=== PATIENT | male | born 1945 | race Caucasian/White ===

== ENCOUNTER 2019-06-22 08:44 | Day surgery (SDC) | payer MEDICARE ==
[~2019-06-22] VITALS: Ht 170.2 cm; Wt 87.7 kg
[2019-06-22 09:00] VITALS: BP 164/111
[2019-06-22] MEDS ORDERED: ALLO100T PO (09:13)
[2019-06-22] MEDS ORDERED: ESCI10TA PO (09:14)
[2019-06-22] MEDS ORDERED: MULT1TAB74 PO (09:14)
[2019-06-22] MEDS ORDERED: FISH OIL PO (09:15)
[2019-06-22] MEDS ORDERED: VITAMIN D3 PO (09:16)
[2019-06-22] MEDS ORDERED: MIDAZolam 5mg/5ml vial ONE (09:45)
[2019-06-22] MEDS ORDERED: fentaNYL/PF 50MCG/1 ML 2ML syringe ONE (09:45)
[2019-06-22 10:29] VITALS: BP 135/92
[2019-06-22 10:39] VITALS: BP 137/81
[2019-06-22 10:49] VITALS: BP 140/83
[2019-06-22 10:59] VITALS: BP 147/84
== END 2019-06-22 11:15 | disposition home or self-care (01) ==
LOC: GI LAB 08:44
PROVIDERS: ATTEND Internal Medicine Gastroenterology
DX: Z12.11 Encounter for screening for malignant neoplasm of colon (principal); D12.2 Benign neoplasm of ascending colon; D12.4 Benign neoplasm of descending colon; D12.5 Benign neoplasm of sigmoid colon; K51.40 Inflammatory polyps of colon without complications; K57.30 Diverticulosis of large intestine without perforation or abscess without bleeding; K64.8 Other hemorrhoids; Z86.010 Personal history of colon polyps
CPT/HCPCS: 45380; 45381; 45385; 99153; C1773; G0500; J2250; J3010; J7040; 45335; 99152; A4620

== ENCOUNTER 2019-11-12 10:51 | Emergency (ER) | payer MEDICARE ==
[~2019-11-12] VITALS: Ht 170.2 cm; Wt 92.0 kg
[~2019-11-12 10:51] MED LIST: ALLO100T PO; ESCI10TA PO; FISH OIL PO; MULT1TAB74 PO; VITAMIN D3 PO
[2019-11-12] MEDS ORDERED: HYDROcodone/acetaminophen 10/325mg tab PO ONE (11:30)
[2019-11-12] MEDS ORDERED: normal saline 1000ml 1,000 ML IV ONE (11:48)
[2019-11-12] MEDS ORDERED: morphine 2 MG/ML inj. syringe IV PRN (11:50)
[2019-11-12] MEDS ORDERED: normal saline 1000ML IV soln IVB ONE (11:50)
[2019-11-12 12:07] VITALS: BP 144/90
[2019-11-12] MEDS ORDERED: iohexol 300mg/ml 100ml inj. ONE (12:07)
[2019-11-12 12:29] LABS: BASOPHILS # (AUTO) 0.1 X10'3 (0-0.2); BASOPHILS % (AUTO) 0.9 % (0-1); EOSINOPHILS # (AUTO) 0.1 X10'3 (0-0.9); EOSINOPHILS % (AUTO) 1.7 % (0-6); HEMATOCRIT 42.2 % (42.0-52.0); HEMOGLOBIN 14.3 g/dl (14.0-17.9); LYMPHOCYTES # (AUTO) 1.2 X10'3 (1.1-4.8); LYMPHOCYTES % (AUTO) 17.9 % (21-51); MEAN CORPUSCULAR HEMOGLOBIN 32.8 PG (27.0-31.0); MEAN CORPUSCULAR HGB CONC 33.8 g/dL (33.0-36.5); MEAN CORPUSCULAR VOLUME 97.1 FL (78-98); MEAN PLATELET VOLUME 8.5 FL (7.4-10.4); MONOCYTES # (AUTO) 0.5 X10'3 (0-0.9); MONOCYTES % (AUTO) 7.4 % (2-12); NEUTROPHILS # (AUTO) 4.8 X10'3 (1.8-7.7); NEUTROPHILS % (AUTO) 72.1 % (42-75); PLATELET COUNT 159 X10'3 (140-440); RED BLOOD COUNT 4.35 X10'6 (4.70-6.10); RED CELL DISTRIBUTION WIDTH 14.1 % (11.5-14.5); WHITE BLOOD COUNT 6.6 X10'3 (4.5-11.0)
[2019-11-12 12:42] LABS: ALANINE AMINOTRANSFERASE 36 U/L (12-78); ALBUMIN 3.5 G/DL (3.4-5.0); ALBUMIN/GLOBULIN RATIO 1.2 (1.1-1.5); ALKALINE PHOSPHATASE 63 IU/L (46-116); ANION GAP 6 (8-16); ASPARTATE AMINO TRANSFERASE 31 U/L (10-37); BILIRUBIN,TOTAL 0.3 MG/DL (0.1-1.0); BLOOD UREA NITROGEN 18 MG/DL (7-18); BUN/CREATININE RATIO 13.6 (5.4-32.0); CALCIUM 8.9 MG/DL (8.5-10.1); CHLORIDE 108 MMOL/L (99-107); CREATININE 1.32 MG/DL (0.60-1.10); GLUCOSE 141 MG/DL (70-104); LIPASE 275 U/L (73-393); POTASSIUM 4.6 MMOL/L (3.5-5.1); SODIUM 141 MMOL/L (135-145); TOTAL CARBON DIOXIDE 26.9 MMOL/L (24-32); TOTAL PROTEIN 6.4 G/DL (6.4-8.2); eGFR 53 ML/MIN
[2019-11-12 12:49] LABS: PARTIAL THROMBOPLASTIN TIME 26 SECONDS (22-32)
--- NOTE | 2019-11-12 13:20 | NUR ---
OFF TO CT
[2019-11-12] MEDS ORDERED: ketorolac tromethamine 15mg/ml inj. IV ONE (14:30)
[2019-11-12] MEDS ORDERED: HYDR-4383 PO (14:36)
== END 2019-11-12 15:13 | disposition home or self-care (01) ==
LOC: ER 10:51
DX: S22.43XA Multiple fractures of ribs, bilateral, initial encounter for closed fracture (principal); Z88.2 Allergy status to sulfonamides; Z88.0 Allergy status to penicillin; Z79.899 Other long term (current) drug therapy; W08.XXXA Fall from other furniture, initial encounter; Y93.89 Activity, other specified; Y92.89 Other specified places as the place of occurrence of the external cause; Y99.8 Other external cause status
CPT/HCPCS: 71100; 71260; 74177; 80053; 83690; 85025; 85610; 85730; 96374; 96375; 99285; J1885; J2270; J7030; Q9967

== ENCOUNTER 2023-03-06 11:16 | Emergency (ER) | payer MEDICARE ==
[~2023-03-06] VITALS: Ht 167.6 cm; Wt 86.4 kg
[~2023-03-06 11:16] MED LIST changes: +HYDR-4383 PO; +MULT-620 PO; -MULT1TAB74 PO
[2023-03-06 11:47] VITALS: BP 153/80; PULSE 66; RESP 16; TEMP 97.6; O2SAT 99
[2023-03-06] MEDS ORDERED: ORPH100T4 PO (15:05)
== END 2023-03-06 15:37 | disposition home or self-care (01) ==
LOC: ER 11:16
DX: S39.012A Strain of muscle, fascia and tendon of lower back, initial encounter (principal); X58.XXXA Exposure to other specified factors, initial encounter; Y93.89 Activity, other specified; Y92.89 Other specified places as the place of occurrence of the external cause; Y99.8 Other external cause status
CPT/HCPCS: 99283